=== PATIENT | female | born 2000 | race Caucasian/White ===

== ENCOUNTER 2024-09-03 00:47 | Inpatient (IN) ==
--- NOTE | 2024-09-03 00:59 | Emergency Department Note ---
Impression & Plan RLQ abdominal pain, Endometrioma of ovary, Lesion of ovary ED Provider Note CHIEF COMPLAINT: Abdominal pain HISTORY OF PRESENTING ILLNESS: This 24-year-old female patient presents to the emergency department with her partner for evaluation of abdominal pain and bloating since 7 AM. The pain starts in the middle of the abdomen and radiates to her right lower quadrant and her back. Pain is worse with eating. She still has her gallbladder and appendix. She rates her discomfort as 10/10. Having trouble walking due to the pain in her abdomen. History of endometriosis, but this feels much different. Having nausea, but no vomiting. Denies any urinary symptoms. She has had BMs today without change in her symptoms. Denies constipation or diarrhea. Denies chest pain or SOB. Denies fevers. Last ate fried rice around 6 or 7 pm. Had some water around midnight as well as with dinner. REVIEW OF SYSTEMS: See HPI for pertinent positives and pertinent negatives. ALLERGIES: NKDA MEDICATIONS: Vyvanse, Mirena PAST MEDICAL HISTORY: ADHD, endometriosis s/p laparoscopic surgery PHYSICAL EXAM: VITALS: Vitals are noted on the nurse's note and reviewed by myself. GENERAL: Non toxic, no acute distress, non-diaphoretic. SKIN: Capillary refill <2 sec. EYES: PERRLA. EOMI. Conjunctivae without injection, sclerae without icterus. NOSE: Patent without discharge. MOUTH: Mucous membranes moist. Uvula midline. Airway patent. NECK: Supple without nuchal rigidity. HEART: Regular rate and rhythm without murmurs gallops or rubs. LUNGS: Clear to auscultation bilaterally without wheezes, rales or rhonchi. No retractions or accessory muscle use. ABDOMEN: Positive bowel sounds x 4. Normal tympanic percussion. Soft, diffusely tender to palpation, but worse on the right lower quadrant. No masses or organomegaly. Beatty sign negative. No CVA tenderness. The patient has guarding and some mild rebound tenderness, but no rigidity. PELVIC EXAM: Permission to perform the exam. Website Optimization Strategist in the room for the exam. The patient was significantly tender to palpation with pelvic exam. Therefore, a pediatric speculum was used. External genitalia normal. Vaginal canal with erythema and edema and a small amount of white discharge. Cervical os is closed. No vaginal bleeding. Cervix without lesions. The patient was diffusely tender to palpation on the bimanual exam and unable to determine if she has true cervical motion tenderness. The patient is tender to palpation diffusely over the uterus and ovaries as well as the vaginal canal on bimanual exam. MUSCULOSKELETAL: No gross musculoskeletal defects. NEURO: Patient was alert and oriented. No focal neurological deficits. DIFFERENTIAL DIAGNOSIS: Differential diagnosis includes hepatitis, pancreatitis, cholecystitis, cholelithiasis, appendicitis, kidney stone, pyelonephritis, UTI, gastritis, gastroenteritis, mesenteric adenitis, obstruction, constipation, hernia, abdominal abscess, perforation, diverticulitis, IBD, ischemic colitis, abdominal aortic aneurysm, , ectopic , ovarian cyst, ovarian torsion, acute salpingitis, or others. ED COURSE AND MEDICAL DECISION MAKING: MEDICATIONS GIVEN: 1 L normal saline solution bolus. Toradol 10 mg IV x 2. Mefoxin 2 g IV. MONITOR: Continuous auditing manager: Order was placed for continuous auditing manager. Patient was placed on the auditing manager and continuous pulse ox. Patient was noted to be in sinus tachycardia at an initial rate of 120 bpm per my interpretation. INTERPRETATION OF LABS: I interpreted the labs with full lab results as below in the lab section of this note. Pertinent lab results discussed in the MDM section below. INTERPRETATION OF IMAGING: Imaging studies were interpreted by myself and read by radiology as per the imaging section of this note. CT scan of the abdomen pelvis with IV contrast showed a normal appendix. There was mild fluid-filled small bowel with mild wall thickening concerning for mild enteritis. There is a solid and cystic mass in the right pelvis/adnexa measuring 5.9 x 7.2 cm. An ovarian neoplasm cannot be excluded given the soft tissue component along the lateral aspect of the cystic lesion. Additional left adnexal lesion measuring 2.9 x 2.8 cm. Pelvic ultrasound was recommended. The costume technician noted a mild to moderate amount of free fluid in the abdomen on her exam, but this was not seen on the CT scan. I did reach out to the [facility] radiologist about free fluid on the CT scan, but no change in the reading of the CT scan was made. The patient was unable to tolerate the transvaginal ultrasound due to her significant discomfort. Therefore, only a transabdominal ultrasound was performed. The pelvic ultrasound showed a 7.3 cm complex solid and cystic lesion in the right adnexa. 4.8 cm cystic focus in the left ovary. Mild to moderate free fluid in the pelvis. IUD is in place. Given the history of endometriosis, further assessment with MRI of the pelvis could be performed per radiology. CONSULTATIONS: [facility] radiologist. Dr. Davies of [facility] MDM SUMMARY: I examined the patient. The patient presents emergency department for evaluation of abdominal pain worse in the right lower quadrant since 7 AM this morning. Based on her history and exam, there is concern for possible appendicitis. The patient was initially tachycardic at 130, but was afebrile. An IV lock was placed and labs were drawn. The patient's heart rate improved after the 1 L normal saline solution bolus and Toradol 10 mg IV. She was given a second dose of Toradol 10 mg IV at the patient's request approximately 6 hours after her initial dose. She declined any additional medication for pain while in the emergency department. White blood cell count elevated at 16.12. Hemoglobin normal at 14.6. Platelet count normal at 311. Potassium 3.4 and glucose 111, but CMP otherwise normal. Lipase normal. Serum hCG negative. Urinalysis with 1+ ketones, but no evidence for UTI. Pelvic cultures and STI testing is still pending. CT scan of the abdomen pelvis with IV contrast showed a normal appendix. There was mild fluid-filled small bowel with mild wall thickening concerning for mild enteritis. There is a solid and cystic mass in the right pelvis/adnexa measuring 5.9 x 7.2 cm. An ovarian neoplasm cannot be excluded given the soft tissue component along the lateral aspect of the cystic lesion. Additional left adnexal lesion measuring 2.9 x 2.8 cm. Pelvic ultrasound was recommended. The costume technician noted a mild to moderate amount of free fluid in the abdomen on her exam, but this was not seen on the CT scan. I did reach out to the [facility] radiologist about free fluid on the CT scan, but no change in the reading of the CT scan was made. The patient was unable to tolerate the transvaginal ultrasound due to her significant discomfort. Therefore, only a transabdominal ultrasound was performed. The pelvic ultrasound showed a 7.3 cm complex solid and cystic lesion in the right adnexa. 4.8 cm cystic focus in the left ovary. Mild to moderate free fluid in the pelvis. IUD is in place. Given the history of endometriosis, further assessment with MRI of the pelvis could be performed per radiology. I spoke with Dr. Davies of [facility] in regards to the patient's symptoms, CT scan findings, and pelvic ultrasound findings. Due to the patient's elevated white blood cell count, initial tachycardia, significant tenderness on pelvic exam, bloating, loss of appetite, and the abnormal imaging studies with a history of endometriosis, he was concerned for endometrioma/infection. He recommended the patient receive Mefoxin 2 g IV. He also recommended the patient be admitted for continued IV antibiotics and possible surgical intervention if needed. Please refer to his dictation for further details. I spoke with the patient's mother at the patient's request to explain the above findings and the recommended treatment plan. The patient's care was transferred in stable condition. DIAGNOSIS: Right lower quadrant abdominal pain Bilateral adnexal lesions Endometrioma of ovary Past Med/Surg History Problem List (Updated 09/03/24 @ 20:51 by Randa Clifton PA-C) Lesion of ovary (Acute) RLQ abdominal pain (Acute) Endometrioma of ovary (Acute) Endometriosis ADHD (attention deficit hyperactivity disorder) Family history of premature coronary artery disease Tachycardia Social History Smoking Status: Never smoker Hx Alcohol Use: No Hx Substance Use: No Preferred Language: Cameroonian Communication Ability: Effective Workforce Specialist Required: No Beliefs That Will Affect Care: None Current Living Situation: Significant Other Other Information That Helps Us Care for You: No Feels Safe at Home: Yes Safety Concerns: Feels Safe At This Time Assistive Devices: Glasses Allergies Allergies Allergy/AdvReac Type Severity Reaction Status Date / Time No Known Allergies Allergy Verified 09/03/24 01:08 Home Meds Home Medications Medication Instructions Recorded Confirmed levonorgestrel 21 mcg/24 hr (up to 1 device intrauterine CONTINOUS 08/27/23 09/03/24 8 years) 52 mg intrauterine device (Mirena) lisdexamfetamine 30 mg capsule 30 mg PO DAILY 09/03/24 09/03/24 Results & Data (ED) Vital Signs Vital Signs - 24 hr 09/03/24 00:53 09/03/24 02:30 09/03/24 06:00 Temperature 36.6 C Temperature Source Temporal Artery Scan Pulse Rate 130 H Pulse Rate [Apical] 103 H 97 H Pulse Rhythm [Apical] Regular Regular Pulse Strength [Apical] Normal Normal Respiratory Rate 18 20 19 Respiratory Effort / Characteristics Non-Labored Non-Labored Spontaneous Non-Labored Spontaneous Respiratory Depth Normal Normal Normal Respiratory Pattern Regular Regular Blood Pressure 141/87 H Blood Pressure [Right Arm] 129/85 107/72 Blood Pressure Mean 105 Blood Pressure Mean [Right Arm] 99 83 Blood Pressure Position [Right Arm] Lying Lying Pulse Oximetry 99 95 97 Oxygen Delivery Method Room Air Room Air Room Air Sepsis Recent Fever Within 48 Hours No Sepsis New/Unexplained Change in Mental Status No Sepsis Action Taken by Nursing No Action Required 09/03/24 08:00 09/03/24 10:00 Temperature Temperature Source Pulse Rate Pulse Rate [Apical] 96 H 94 H Pulse Rhythm [Apical] Regular Pulse Strength [Apical] Respiratory Rate 18 18 Respiratory Effort / Characteristics Non-Labored Non-Labored Respiratory Depth Normal Normal Respiratory Pattern Regular Regular Blood Pressure Blood Pressure [Right Arm] 130/75 124/82 Blood Pressure Mean Blood Pressure Mean [Right Arm] 93 96 Blood Pressure Position [Right Arm] Pulse Oximetry 97 98 Oxygen Delivery Method Room Air Room Air Sepsis Recent Fever Within 48 Hours Sepsis New/Unexplained Change in Mental Status Sepsis Action Taken by Nursing Laboratory Data 09/03/24 01:06 09/03/24 01:06 Lab Results 09/03/24 09/03/24 Range/Units 01:06 01:55 WBC 16.12 H (4.8-10.8) K/ul RBC 5.21 (4.20-5.40) M/uL Hgb 14.6 (12.0-16.0) g/dl Hct 43.1 (37.0-47.0) % MCV 82.7 (80.0-100.0) fL MCH 28.0 (25.0-34.0) pg MCHC 33.9 (32.0-36.0) g/dL RDW Std Deviation 37.1 (36.4-46.3) fL RDW Coeff of Hao 12.3 (11.5-14.5) % Plt Count 311 (130-400) K/uL MPV 9.7 (9.4-12.4) fL Immature Gran % (Auto) 0.3 % Neut % (Auto) 79.5 % Lymph % (Auto) 14.0 % Mckinley % (Auto) 5.5 % Eos % (Auto) 0.5 % Baso % (Auto) 0.2 % Neut # (Auto) 12.82 H (1.40-6.50) K/uL Lymph # (Auto) 2.25 (1.20-3.40) K/uL Mckinley # (Auto) 0.88 H (0.11-0.59) K/uL Eos # (Auto) 0.08 (0.00-0.50) K/uL Baso # (Auto) 0.04 (0.00-0.20) K/uL Immature Gran # (Auto) 0.05 (0.01-0.20) K/uL Sodium 137 (136-145) mmol/L Potassium 3.4 L (3.5-5.1) mmol/L Chloride 101 (98-107) mmol/L Carbon Dioxide 27 (21-32) mmol/L Anion Gap 9 (3-11) BUN 8 (6-23) mg/dl Creatinine 0.81 (0.6-1.2) mg/dl Est Cr Clr Drug Dosing 104.2 ml/min eGFR 103.89 BUN/Creatinine Ratio 9.9 L (10-20) Glucose 111 H (70-99(Fasting)) mg/dl Calcium 9.5 (8.6-10.3) mg/dl Total Bilirubin 0.7 (0.2-1.0) mg/dl AST 11 L (13-39) U/L ALT 13 (7-52) U/L Alkaline Phosphatase 72 (34-104) U/L Total Protein 7.9 (6.0-8.3) gm/dl Albumin 4.7 (3.4-5.0) gm/dl Globulin 3.2 (2.5-4.0) gm/dl Albumin/Globulin Ratio 1.5 (0.9-2) Lipase 16 (11-82) U/L HCG, Qual Negative (Negative) Urine Color Yellow Urine Appearance Clear (Clear) Urine pH 7.5 (4.5-7.5) Ur Specific Ding[place] > 1.045 H (1.000-1.030) Urine Protein Negative (Negative) Urine Glucose (UA) Negative (Negative) Urine Ketones 1+ H (Negative) Urine Blood Negative (Negative) Urine Nitrite Negative (Negative) Urine Bilirubin Negative (Negative) Urine Urobilinogen Negative (Negative) Ur Leukocyte Esterase Trace H (Negative) Urine WBC (Auto) 0-5 (0-5) /hpf Urine RBC (Auto) 0-2 (0-2) /hpf U Hyaline Cast (Auto) 0-2 (0-2) /lpf U Epithel Cells (Auto) 0-2 (0-2) /hpf Urine Bacteria (Auto) None Seen (None Seen) Administered Medications Acetaminophen (Acetaminophen 325 Mg Tab) 650 mg PO Q4H PRN PRN Reason: Pain or Fever Stop: 10/03/24 11:04 Last Admin: 09/03/24 17:02 Dose: 650 mg Documented By: CIARA Lactated Ringer's (Lr) 1,000 mls @ 100 mls/hr IV .Q10H DE Stop: 10/03/24 11:14 Last Admin: 09/03/24 12:51 Dose: 100 mls/hr Documented By: CORRIE Discontinued Medications Sodium Chloride (Nss) 1,000 mls @ 999 mls/hr IV .Q1H1M ONE Stop: 09/03/24 04:03 Last Infusion: 09/03/24 04:08 Dose: Infused Documented By: Admin: 09/03/24 03:06 Dose: 999 mls/hr Documented By: SRINIVAS Cefoxitin Sodium (Mefoxin) 2,000 mg in 60 mls @ 100 mls/hr IV NOW STA Stop: 09/03/24 06:59 Last Infusion: 09/03/24 07:22 Dose: Infused Documented By: Admin: 09/03/24 06:43 Dose: 100 mls/hr Documented By: SRINIVAS Cefoxitin Sodium 2,000 mg/ (Dextrose) 50 mls @ 100 mls/hr IV Q6H [facility]; Protocol Stop: 09/03/24 13:29 Last Infusion: 09/03/24 14:10 Dose: Infused Documented By: Admin: 09/03/24 13:34 Dose: 100 mls/hr Documented By: HENNY Ioversol (Optiray 320 100ml) 94 ml IV ONCE ONE Stop: 09/03/24 01:29 Last Admin: 09/03/24 01:24 Dose: 94 ml Documented By: YAMILET Ketorolac Tromethamine (Ketorolac Tromethamine 15 Mg/Ml Vial) 10 mg IV NOW STA Stop: 09/03/24 01:07 Last Admin: 09/03/24 01:10 Dose: 10 mg Documented By: SRINIVAS Ketorolac Tromethamine (Ketorolac Tromethamine 15 Mg/Ml Vial) 10 mg IV NOW ONE Stop: 09/03/24 07:00 Last Admin: 09/03/24 07:05 Dose: 10 mg Documented By: CORINA Miscellaneous (Vyvanse (Do Not Tube)---Order Awaiting Action) 1 each N/A QS DE Stop: 10/03/24 15:59 Last Admin: 09/03/24 14:08 Dose: Not Given Documented By: HENNY Imaging Data Radiologist's Impression: Abdomen/Pelvis CT 09/03/24 01:07 Exam(s): CT ABDOMEN + PELVIS With Contrast IV Amt: 94 ml EXAM: CT Abdomen and Pelvis With Intravenous Contrast CLINICAL HISTORY: Reason for exam: RLQ and right flank pain. TECHNIQUE: Axial computed tomography images of the abdomen and pelvis with intravenous contrast. CTDI is 17 mGy and DLP is 893 mGy-cm. Automated exposure control was utilized for the study. A dose lowering technique was utilized adhering to the principles of ALARA. CONTRAST: Patient received 94 ml of IV contrast COMPARISON: No relevant prior studies available. FINDINGS: Lung bases: Unremarkable. No mass. No consolidation. ABDOMEN: Liver: Unremarkable. No mass. Gallbladder and bile ducts: Unremarkable. No calcified stones. No ductal dilation. Pancreas: Unremarkable. No mass. No ductal dilation. Spleen: Unremarkable. No splenomegaly. Adrenals: Unremarkable. No mass. Kidneys and ureters: Unremarkable. No solid mass. No hydronephrosis. Stomach and bowel: Mild fluid-filled small bowel with mild wall thickening, concerning for mild enteritis. No obstruction. PELVIS: Appendix: Normal appendix. Bladder: Unremarkable. No mass. Reproductive: Solid and cystic mass in the pelvis/RIGHT adnexa measures 5.9 x 7.2 cm. Ovarian neoplasm cannot be excluded given the soft tissue component along the lateral aspect of the cystic lesion. Additional LEFT adnexal lesion, measures 2.9 x 2.8 cm. Pelvic ultrasound correlation recommended. ABDOMEN and PELVIS: Intraperitoneal space: Unremarkable. No free air. No significant fluid collection. Bones/joints: No acute fracture. No dislocation. Soft tissues: Unremarkable. Vasculature: Unremarkable. No abdominal aortic aneurysm. Lymph nodes: Unremarkable. No enlarged lymph nodes. IMPRESSION: 1. Normal appendix. 2. Mild fluid-filled small bowel with mild wall thickening, concerning for mild enteritis. 3. Solid and cystic mass in the pelvis/RIGHT adnexa measures 5.9 x 7.2 cm. Ovarian neoplasm cannot be excluded given the soft tissue component along the lateral aspect of the cystic lesion. Additional LEFT adnexal lesion, measures 2.9 x 2.8 cm. Pelvic ultrasound correlation recommended. Electronically signed by: Regan Murrieta MD 09/03/24 03:27 AM Pelvis Ultrasound 09/03/24 03:39 Exam(s): US PELVIS EXAM: US Pelvis Transabdominal, Complete CLINICAL HISTORY: Reason for exam: Abdominal pain, abnormal CT scan. TECHNIQUE: Real-time complete transabdominal pelvic ultrasound with image documentation. COMPARISON: No relevant prior studies available. FINDINGS: Uterus/cervix: The uterus measures 6.6 cm in length. Endometrial stripe thickness measures 3.9 mm. Normal endometrial stripe thickness. No myometrial mass. Right ovary: There is a 7.3 cm diameter complex right adnexal solid and cystic lesion. The cystic component measures 5.6 cm in diameter. Left ovary: 4.8 cm cystic focus seen in the left ovary. Doppler evaluation is limited due to the presence of adjacent bowel loops in the adnexa Free fluid: Mild to moderate free fluid seen. Tubes, lines and devices: Intrauterine device seen in situ. IMPRESSION: 1. 7.3 cm complex solid and cystic lesion in the right adnexa 2. 4.8 cm cystic focus in the left ovary. 3. Mild to moderate free fluid in the pelvis Recommendation: Given the history of endometriosis, further assessment with MRI of the pelvis could be performed Electronically signed by: Harvey Steiner MD 09/03/24 05:40 AM Discharge Plan Visit Data Chief Complaint: Abdominal Pain Stated Complaint: ABD PAIN ED Provider: Daisy Cary ED Midlevel Provider: Randa Clifton Discharge Problem: RLQ abdominal pain, Endometrioma of ovary, Lesion of ovary Patient Disposition: Admitted As Inpatient Condition: Good Discharge Instructions Interventions: ED Discharge Assessment Last Done: 09/03/24 13:17
[2024-09-03] MEDS: KETOROLAC TROMETHAMINE 15 MG/ML VIAL IV STA (01:10)
[2024-09-03 01:23] LABS: Basophils # (auto) 0.04 K/uL (0.00-0.20); Basophils % (auto) 0.2 %; Eosinophils # (auto) 0.08 K/uL (0.00-0.50); Eosinophils % (auto) 0.5 %; Hematocrit (blood only) 43.1 % (37.0-47.0); Hemoglobin 14.6 g/dl (12.0-16.0); Immature Granulocytes # (auto) 0.05 K/uL (0.01-0.20); Immature Granulocytes % (auto) 0.3 %; Lymphocytes # (auto) 2.25 K/uL (1.20-3.40); Mean Corpuscular Hgb Conc 33.9 g/dL (32.0-36.0); Mean Corpuscular Volume 82.7 fL (80.0-100.0); Mean Platelet Volume 9.7 fL (9.4-12.4); Monocytes # (auto) 0.88 K/uL (0.11-0.59); Monocytes % (auto) 5.5 %; Neutrophils # (auto) 12.82 K/uL (1.40-6.50); Neutrophils % (auto) 79.5 %; Platelet Count 311 K/uL (130-400); RDW Coefficient of Variation 12.3 % (11.5-14.5); RDW Standard Deviation 37.1 fL (36.4-46.3); Red Blood Count 5.21 M/uL (4.20-5.40); White Blood Count 16.12 K/ul (4.8-10.8)
[2024-09-03] MEDS: OPTIRAY 320 100ml IV ONE (01:24)
[2024-09-03 01:33] LABS: Pregnancy Test, Serum Negative (Negative)
[2024-09-03 01:35] LABS: Albumin Globulin Ratio 1.5 (0.9-2); Albumin Level 4.7 gm/dl (3.4-5.0); BUN Creatinine Ratio 9.9 (10-20); Bilirubin,Total 0.7 mg/dl (0.2-1.0); Calcium 9.5 mg/dl (8.6-10.3); Creatinine Clr Calc Pharmacy 104.2 ml/min; Globulin 3.2 gm/dl (2.5-4.0); Potassium 3.4 mmol/L (3.5-5.1); Total Protein 7.9 gm/dl (6.0-8.3)
[2024-09-03 02:06] LABS: Appearance Urine Clear (Clear); Bacteria Urine Automated None Seen (None Seen); Bilirubin Urine Negative (Negative); Blood Urine Negative (Negative); Cast Urine Automated 0-2 /lpf (0-2); Color Urine Yellow; Epithelial Cell Urine Auto 0-2 /hpf (0-2); Glucose Urine UA Negative (Negative); Ketones Urine 1+ (Negative); Leukocyte Esterase Urine Trace (Negative); Nitrite Urine Negative (Negative); Protein Urine Negative (Negative); RBC Urine Automated 0-2 /hpf (0-2); Specific Gravity Urine > 1.045 (1.000-1.030); Urobilinogen Urine Negative (Negative); WBC Urine Automated 0-5 /hpf (0-5); pH Urine 7.5 (4.5-7.5)
[2024-09-03] MEDS: SODIUM CHLORIDE 0.9% 1,000 ML IV ONE (03:06)
--- NOTE | 2024-09-03 03:28 | CT Scan Report ---
Exam(s): CT ABDOMEN + PELVIS With Contrast IV Amt: 94 ml EXAM: CT Abdomen and Pelvis With Intravenous Contrast CLINICAL HISTORY: Reason for exam: RLQ and right flank pain. TECHNIQUE: Axial computed tomography images of the abdomen and pelvis with intravenous contrast. CTDI is 17 mGy and DLP is 893 mGy-cm. Automated exposure control was utilized for the study. A dose lowering technique was utilized adhering to the principles of ALARA. CONTRAST: Patient received 94 ml of IV contrast COMPARISON: No relevant prior studies available. FINDINGS: Lung bases: Unremarkable. No mass. No consolidation. ABDOMEN: Liver: Unremarkable. No mass. Gallbladder and bile ducts: Unremarkable. No calcified stones. No ductal dilation. Pancreas: Unremarkable. No mass. No ductal dilation. Spleen: Unremarkable. No splenomegaly. Adrenals: Unremarkable. No mass. Kidneys and ureters: Unremarkable. No solid mass. No hydronephrosis. Stomach and bowel: Mild fluid-filled small bowel with mild wall thickening, concerning for mild enteritis. No obstruction. PELVIS: Appendix: Normal appendix. Bladder: Unremarkable. No mass. Reproductive: Solid and cystic mass in the pelvis/RIGHT adnexa measures 5.9 x 7.2 cm. Ovarian neoplasm cannot be excluded given the soft tissue component along the lateral aspect of the cystic lesion. Additional LEFT adnexal lesion, measures 2.9 x 2.8 cm. Pelvic ultrasound correlation recommended. ABDOMEN and PELVIS: Intraperitoneal space: Unremarkable. No free air. No significant fluid collection. Bones/joints: No acute fracture. No dislocation. Soft tissues: Unremarkable. Vasculature: Unremarkable. No abdominal aortic aneurysm. Lymph nodes: Unremarkable. No enlarged lymph nodes. IMPRESSION: 1. Normal appendix. 2. Mild fluid-filled small bowel with mild wall thickening, concerning for mild enteritis. 3. Solid and cystic mass in the pelvis/RIGHT adnexa measures 5.9 x 7.2 cm. Ovarian neoplasm cannot be excluded given the soft tissue component along the lateral aspect of the cystic lesion. Additional LEFT adnexal lesion, measures 2.9 x 2.8 cm. Pelvic ultrasound correlation recommended. Electronically signed by: Regan Murrieta MD 09/03/24 03:27 AM
--- NOTE | 2024-09-03 05:41 | Ultrasound Report ---
Exam(s): US PELVIS EXAM: US Pelvis Transabdominal, Complete CLINICAL HISTORY: Reason for exam: Abdominal pain, abnormal CT scan. TECHNIQUE: Real-time complete transabdominal pelvic ultrasound with image documentation. COMPARISON: No relevant prior studies available. FINDINGS: Uterus/cervix: The uterus measures 6.6 cm in length. Endometrial stripe thickness measures 3.9 mm. Normal endometrial stripe thickness. No myometrial mass. Right ovary: There is a 7.3 cm diameter complex right adnexal solid and cystic lesion. The cystic component measures 5.6 cm in diameter. Left ovary: 4.8 cm cystic focus seen in the left ovary. Doppler evaluation is limited due to the presence of adjacent bowel loops in the adnexa Free fluid: Mild to moderate free fluid seen. Tubes, lines and devices: Intrauterine device seen in situ. IMPRESSION: 1. 7.3 cm complex solid and cystic lesion in the right adnexa 2. 4.8 cm cystic focus in the left ovary. 3. Mild to moderate free fluid in the pelvis Recommendation: Given the history of endometriosis, further assessment with MRI of the pelvis could be performed Electronically signed by: Harvey Steiner MD 09/03/24 05:40 AM
[2024-09-03] MEDS: cefOXitin 2,000 MG/60 ML BAG IV STA (06:43)
[2024-09-03] MEDS: KETOROLAC TROMETHAMINE 15 MG/ML VIAL IV ONE (07:05)
--- NOTE | 2024-09-03 09:28 | History & Physical Report ---
Date of Service September 03, 2024 Assessment & Plan (1) Endometrioma of ovary: Plan IV antibiotics. Follow-up white blood cell count. History of Present Illness Chief Complaint: Pelvic pain. Bloating. Loss of appetite. Primary Care Provider: [facility] Patient is a 24-year-old male lip. She has a Mirena IUD in place which was placed in 2021. 3 years prior to admission she had a diagnostic laparoscopy which revealed stage IV endometriosis. With bilateral endometriomas. At that time she had lysis of adhesions and cystectomy. She is admitted because she has worsening bloating worsening pelvic pain. And loss of appetite. Last menstrual period 08/05/2024. She had an ultrasound transvaginal ultrasound also a CT scan. Transvaginal ultrasound revealed the IUD to be in place and adnexal masses both sides with free peritoneal fluid. CT scan revealed normal appendix Allergies Allergy/AdvReac Type Severity Reaction Status Date / Time No Known Allergies Allergy Verified 09/03/24 01:08 Home Medications Medication Instructions Recorded Confirmed Type levonorgestrel 21 mcg/24 hr (up to 1 device intrauterine CONTINOUS 08/27/23 09/03/24 History 8 years) 52 mg intrauterine device (Mirena) lisdexamfetamine 30 mg capsule 30 mg PO DAILY 09/03/24 09/03/24 History Past Med/Surg History Problem List (Updated 09/03/24 @ 09:27 by Syed Davies MD) Endometrioma of ovary Endometriosis ADHD (attention deficit hyperactivity disorder) Family history of premature coronary artery disease Tachycardia Social History Smoking Status: Never smoker Preferred Language: Georgian Feels Safe at Home: Yes Physical Exam Physical Exam: Patient appeared to be well-developed well-nourished 24-year-old white female alert oriented x 3 in no acute distress. Heart had a regular rhythm S1 and S2 were normal. Lungs are clear to auscultation and percussion. Trachea was midline. There was no cervical adenopathy. Abdomen revealed good bowel sounds. There was no rebound. There was no CVA tenderness. There is no calf tenderness. Pelvic exam exam was quite tender. Pain on motion of the cervix. Results & Data Results & Data Vital Signs (Past 12 Hours) Vital Signs Temp Pulse Pulse Resp BP BP Pulse Ox 09/03/24 08:00 96 H 18 130/75 97 09/03/24 06:00 97 H 19 107/72 97 09/03/24 02:30 103 H 20 129/85 95 09/03/24 00:53 36.6 C 130 H 18 141/87 H 99 O2 Del Method 09/03/24 08:00 Room Air 09/03/24 06:00 Room Air 09/03/24 02:30 Room Air 09/03/24 00:53 Room Air
[2024-09-03] MEDS ORDERED: ZOLPIDEM TARTRATE 5 MG TAB PO PRN (11:05)
[2024-09-03] MEDS ORDERED: ONDANSETRON INJ 2 MG/ML 2 ML VIAL IV PRN (11:05)
[2024-09-03] MEDS: LACTATED RINGER'S 1,000 ML IV SCH (12:51)
[2024-09-03] MEDS ORDERED: cefOXitin 2,000 MG/60 ML BAG IV ONE (13:00)
[2024-09-03] MEDS ORDERED: LEVONORGESTREL IU SCH (13:16)
[2024-09-03] MEDS ORDERED: [UNRECOGNIZED DRUG - OTHER] IU SCH (13:16)
[2024-09-03] MEDS: cefOXitin 2,000 MG in DEXTROSE 5 % MINI-B 50 ML IV SCH ×2 (13:34→21:34)
[2024-09-03] MEDS: ACETAMINOPHEN 325 MG TAB PO PRN (17:02)
[2024-09-03] MEDS ORDERED: Nursing to Pharmacy Communication SCH (17:15)
[2024-09-03 22:53] VITALS: TEMP 98.2
[2024-09-04 06:09] LABS: Basophils # (auto) 0.05 K/uL (0.00-0.20); Basophils % (auto) 0.7 %; Eosinophils # (auto) 0.14 K/uL (0.00-0.50); Eosinophils % (auto) 1.9 %; Hematocrit (blood only) 38.5 % (37.0-47.0); Hemoglobin 12.5 g/dl (12.0-16.0); Immature Granulocytes # (auto) 0.02 K/uL (0.01-0.20); Immature Granulocytes % (auto) 0.3 %; Lymphocytes # (auto) 2.48 K/uL (1.20-3.40); Lymphocytes % (auto) 33.9 %; Mean Corpuscular Hemoglobin 27.4 pg (25.0-34.0); Mean Corpuscular Hgb Conc 32.5 g/dL (32.0-36.0); Mean Corpuscular Volume 84.4 fL (80.0-100.0); Mean Platelet Volume 9.9 fL (9.4-12.4); Monocytes # (auto) 0.53 K/uL (0.11-0.59); Monocytes % (auto) 7.2 %; Platelet Count 277 K/uL (130-400); RDW Coefficient of Variation 12.5 % (11.5-14.5); RDW Standard Deviation 38.5 fL (36.4-46.3); Red Blood Count 4.56 M/uL (4.20-5.40); White Blood Count 7.32 K/ul (4.8-10.8)
--- NOTE | 2024-09-04 08:49 | Gynecologic Progress Note ---
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 Discussed Lupron, knows about it but did not want to use it due to possible side effects She used Aygestin but had AUB on in Patient wants to f/u with her own [employer] [facility] came down to 7 from 16 d/c home on PO Augmentin Results & Data Vital Signs (Past 12 Hours) Vital Signs Temp Pulse Resp BP Pulse Ox O2 Del Method 09/03/24 22:53 36.8 C 88 16 121/73 97 Room Air
[2024-09-04 11:11] VITALS: BP 119/79; RESP 18; O2SAT 98
[2024-09-04 11:18] VITALS: PULSE 94
[2024-09-04 11:31] LABS: Bacterial Vaginosis RNA Negative (Negative)
[2024-09-04 11:41] LABS: Candida glabrata RNA Negative (Negative); Candida species group RNA Negative (Negative); Trichomonas vaginalis RNA Negative (Negative)
[2024-09-04 12:38] LABS: Mycoplasma Genitalium RNA Negative (Negative)
[2024-09-04 12:43] LABS: Chlam trach RNA(Genit,Ureth,Ur Not Detected (NotDetected); GC(Neis gon)RNA(Genit,Ureth,Ur Not Detected (NotDetected)
[2024-09-04] MEDS ORDERED: AMOXICILLIN/CLAVULANATE 875 MG TAB PO SCH (17:00)
--- NOTE | 2024-09-12 20:24 | Discharge Summary ---
Date of Service September 12, 2024 Admission HPI Per Admitting Provider Patient is a 24-year-old male lip. She has a Mirena IUD in place which was placed in 2021. 3 years prior to admission she had a diagnostic laparoscopy which revealed stage IV endometriosis. With bilateral endometriomas. At that time she had lysis of adhesions and cystectomy. She is admitted because she has worsening bloating worsening pelvic pain. And loss of appetite. Last menstrual period 08/05/2024. She had an ultrasound transvaginal ultrasound also a CT scan. Transvaginal ultrasound revealed the IUD to be in place and adnexal masses both sides with free peritoneal fluid. CT scan revealed normal appendix Discharge Data Consultations 09/03/24 09:34 ED Decision to Admit Stat Hospital Course (1) Lesion of ovary: (2) RLQ abdominal pain: (3) Endometrioma of ovary: patient is a 24-year-old G0 female who was admitted on September [address] Davies with abdominal pain, decreased appetite, endometrioma of ovaries, fluid in the pelvis, elevated white blood cell count suggesting pelvic inflammatory disease. She was started on IV antibiotics and kept overnight for observation. 3 years prior to admission she had a diagnostic laparoscopy which revealed stage IV endometriosis. With bilateral endometriomas. 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 She was then placed on Mirena IUD due to recurrent abnormal uterine bleeding on POI Aygestin. Patient knows about Lupron and she declined it because of possible side effects and she wanted to be on on IUD only. Last menstrual period 08/05/2024. She had an ultrasound transvaginal ultrasound also a CT scan. Transvaginal ultrasound revealed the IUD to be in place and adnexal masses both sides with free peritoneal fluid. CT scan revealed normal appendix. Next day of admission, on September 04, patient was feeling much better, has been afebrile, pain has subsided, started to have her appetite back, was able to eat and drink normally. Her white blood cell count was 16,000 on the day of admission and came down to 7000 on day 2. She was discharged on September 04 to be followed in office. We discussed about other options like control pills, patient declined due to family history of blood clotting disorders, Lupron and Aygestin as indicated above. We offered her to follow-up in our office here in [place] but patient wants to go back to her primary GAS BLENDER in [place]. she was recommended to come back with increased pain, fever chills, decreased appetite, abnormal uterine bleeding. All questions were answered. She was discharged on p.o. Augmentin. (4) Endometriosis:
== END 2024-09-04 09:30 | disposition home or self-care (01) | DRG 761 ==
LOC: ED 00:47 → 4E1 11:05